=== PATIENT | male | born 1930 | race Caucasian/White ===

== ENCOUNTER 2017-09-06 06:07 | Inpatient (IN) | payer OTHER, MEDICARE ==
[~2017-09-06] VITALS: Ht 170.2 cm; Wt 90.2 kg
[~2017-09-06 06:07] MED LIST: ADULT LOW DOSE81 M1 PO; ATORVASTATIN CA80 MG PO; CARDIZEM CD,CA180 MG PO; CARDIZEM60 MG PO; CHROMIUM PICO200 MCG PO; CINNAMON PO; CO Q10 PO; COLACE100 MG PO; COQ-10100 MG PO; CRESTOR10 MG PO; CYANOCOBALAM1000 MCG PO; Calcium Carbonate,Ca PO; Catapres-TTS 1 TD; Chromium Picolinate PO; Cinnamon Bark PO; Cleocin PO; Colace PO; DIGITEK125 MC2 PO; ELIQUIS2.5 MG PO; Ecotrin PO; FISH OIL 1,0001 EA11 PO; Feosol PO; Fish Oil PO; GARLIC500 MG PO; GINGER ROOT PO; GINGER ROOT550 MG PO; GLUCOSAMINE CH1 EAC2 PO; GLUCOTROL10 MG PO; Garlic PO; Glucotrol PO; HYTRIN2 MG PO; LEVOFLOXACIN750 MG PO; LOPRESSOR100 M1 PO; MOVE FREE1 CAPSULE PO; Micro-K,K-Tab,K-Dur, PO; PLAVIX75 MG PO; PREDNISONE20 MG PO; PRILOSEC20 MG PO; PriLOSEC PO; SPIRIVA RESPIMAT4 GM IH; Selenium PO; Senokot S,Pericolace PO; TOPROL XL25 MG PO; TRADJENTA5 MG PO; TYLENOL EXTRA500 MG PO; Toprol XL PO; Tylenol Regular Stre PO; VITAMIN B-122000 MCG PO; VITAMIN D2000 UNIT PO; VITAMIN E100 UNIT PO; Vicodin,Norco 5/325 PO; Vitamin B-12 PO; Vitamin D PO; ZINC GLUCONATE50 MG PO; ZYRTEC10 M3 PO; Zinc Gluconate PO; ZyrTEC PO
[2017-09-06 07:46] LABS: BASOPHIL (%) 0.4 % (0-1); BASOPHIL COUNT 0.1 K/uL (0-0.1); EOSINOPHIL (%) 0.8 % (0-5); EOSINOPHIL COUNT 0.1 K/uL (0-0.3); HEMATOCRIT 37.3 % (38.0-50.0); HEMOGLOBIN 12.2 G/DL (12.5-16.6); IMMATURE GRANULOCYTE (%) 0.7 % (0.0-0.7); LYMPHOCYTE (%) 6.3 % (15-42); LYMPHOCYTE COUNT 1.1 K/uL (1.0-2.8); MCHC 32.7 G/DL (30.0-36.0); MCV 91.9 FL (86-99); MONOCYTE (%) 5.1 % (3-12); MONOCYTE COUNT 0.9 K/uL (0-0.8); NEUTROPHIL (%) 86.7 % (45-76); NEUTROPHIL COUNT 15.7 K/uL (1.8-6.4); PLATELET COUNT 241 K/uL (156-360); RBC DIS.WIDTH-CV 15.6 % (11.8-14.6); RBC DIS.WIDTH-SD 52.1 % (39-53); RED BLOOD COUNT 4.06 M/uL (4.00-5.50); WHITE BLOOD COUNT 18.1 K/uL (4.1-10.2)
[2017-09-06 07:54] LABS: INTER. NORMALIZED RATIO 1.4
[2017-09-06 07:56] LABS: CARBON DIOXIDE (BICARBONATE) 31.9 MEQ/L (20-31)
[2017-09-06 08:31] LABS: TROP-I INTERPRETATION NEGATIVE; TROPONIN-I 0.01 ng/mL (0.0-0.30)
[2017-09-06 08:33] LABS: ALBUMIN 3.6 G/DL (3.2-4.8); ALKALINE PHOSPHATASE 59 IU/L (3-129); ALT (GPT) 9 IU/L (3-49); AST (GOT) 12 IU/L (2-34); CHLORIDE 102 MEQ/L (99-109); CREATININE 1.6 MG/DL (0.6-1.3); GFR ESTIMATE (CALCULATED) 44 mL/min/ (58.99-99999); GLUCOSE 219 mg/dL (70-99); POTASSIUM 4.7 MEQ/L (3.7-5.4); SODIUM 137 MEQ/L (136-147); TOTAL PROTEIN 6.2 G/DL (6.4-8.3); UREA NITROGEN (BUN) 24 mg/dL (9-23)
[2017-09-06] MEDS ORDERED: METOPROLOL TART50 MG PO (12:08)
[2017-09-06] MEDS ORDERED: FUROSEMIDE40 MG PO (12:08)
[2017-09-06] MEDS ORDERED: RANEXA500 MG PO (12:08)
[2017-09-06] MEDS ORDERED: CROMOLYN SODIUM26 ML BOTH NARES (12:10)
[2017-09-06 14:00] VITALS: BP 194/86
[2017-09-06 14:04] LABS: TROP-I INTERPRETATION NEGATIVE; TROPONIN-I 0.13 ng/mL (0.0-0.30)
[2017-09-06 16:24] VITALS: BP 154/68
[2017-09-06 19:25] VITALS: BP 127/47
[2017-09-06 19:33] LABS: TROP-I INTERPRETATION NEGATIVE; TROPONIN-I 0.13 ng/mL (0.0-0.30)
[2017-09-07] VITALS (7 sets, daily range): BP systolic 111–145; BP diastolic 60–77
[2017-09-07 05:28] LABS: HEMATOCRIT 35.8 % (38.0-50.0); HEMOGLOBIN 11.6 G/DL (12.5-16.6); MCH 29.4 PG (29.0-34.0); MCHC 32.4 G/DL (30.0-36.0); MCV 90.6 FL (86-99); PLATELET COUNT 259 K/uL (156-360); RBC DIS.WIDTH-CV 15.6 % (11.8-14.6); RBC DIS.WIDTH-SD 51.1 % (39-53); RED BLOOD COUNT 3.95 M/uL (4.00-5.50); WHITE BLOOD COUNT 19.3 K/uL (4.1-10.2)
[2017-09-07 05:50] LABS: CHLORIDE 99 MEQ/L (99-109); CREATININE 1.6 MG/DL (0.6-1.3); GFR ESTIMATE (CALCULATED) 44 mL/min/ (58.99-99999); GLUCOSE 267 mg/dL (70-99); POTASSIUM 4.4 MEQ/L (3.7-5.4); SODIUM 137 MEQ/L (136-147); UREA NITROGEN (BUN) 32 mg/dL (9-23)
[2017-09-07 21:48] LABS: APPEARANCE CLEAR ((CLEAR)); BILIRUBIN NEGATIVE; BLOOD NEGATIVE; COLOR YELLOW ((YELLOW)); GLUCOSE (STRIP) >=500; KETONES NEGATIVE; LEUKOCYTES NEGATIVE; NITRITE NEGATIVE; PROTEIN (STRIP) 30; SPECIFIC GRAVITY 1.018 (1.000-1.030); UCUL ADDED? NO; UROBILINOGEN 0.2 MG/DL (0.2-1.0)
[2017-09-08 04:04] VITALS: BP 155/94
[2017-09-08 05:32] LABS: BASOPHIL (%) 0.1 % (0-1); EOSINOPHIL (%) 0 % (0-5); HEMATOCRIT 36.3 % (38.0-50.0); HEMOGLOBIN 11.9 G/DL (12.5-16.6); IMMATURE GRANULOCYTE (%) 0.9 % (0.0-0.7); LYMPHOCYTE (%) 4.2 % (15-42); MCH 29.5 PG (29.0-34.0); MCHC 32.8 G/DL (30.0-36.0); MCV 90.1 FL (86-99); MONOCYTE COUNT 1.2 K/uL (0-0.8); NEUTROPHIL (%) 89.8 % (45-76); NRBC (%) 0.1 /100 WBC (0-0); RBC DIS.WIDTH-CV 15.9 % (11.8-14.6); RBC DIS.WIDTH-SD 51.5 % (39-53); RED BLOOD COUNT 4.03 M/uL (4.00-5.50); WHITE BLOOD COUNT 23.4 K/uL (4.1-10.2)
[2017-09-08 05:53] LABS: ALBUMIN 3.7 G/DL (3.2-4.8); ALKALINE PHOSPHATASE 51 IU/L (3-129); ALT (GPT) 10 IU/L (3-49); CHLORIDE 99 MEQ/L (99-109); CREATININE 1.5 MG/DL (0.6-1.3); GFR ESTIMATE (CALCULATED) 47 mL/min/ (58.99-99999); GLUCOSE 188 mg/dL (70-99); POTASSIUM 4.7 MEQ/L (3.7-5.4); SODIUM 138 MEQ/L (136-147); TOTAL PROTEIN 6.3 G/DL (6.4-8.3); UREA NITROGEN (BUN) 37 mg/dL (9-23)
[2017-09-08 05:59] LABS: AST (GOT) 28 IU/L (2-34); TOTAL BILIRUBIN 0.7 MG/DL (0.0-1.0)
[2017-09-08 06:29] LABS: HEMATOLOGY COMMENT 1 SN; PLAT.SUFFICIENCY ADEQUATE; PLATELET COUNT 283 K/uL (156-360)
[2017-09-08 07:18] VITALS: BP 133/74
[2017-09-08 10:01] LABS: HEMOGLOBIN A1c (GLYCOHEMOGLOB) 6.6 % (Below 5.7)
[2017-09-08] MEDS ORDERED: LOPRESSOR50 MG PO (11:32)
[2017-09-08] MEDS ORDERED: ALBUTEROL2.5 MG/0.5 AEROSOL (11:32)
[2017-09-08] MEDS ORDERED: PREDNISONE10 MG PO (11:32)
[2017-09-08] MEDS ORDERED: DULERA 100 MCG/13 GM IH (11:32)
[2017-09-08] MEDS ORDERED: SPIRIVA RESPIMAT4 GM IH (11:32)
[2017-09-08] MEDS ORDERED: PREDNISONE20 MG PO (11:32)
[2017-09-08] MEDS ORDERED: NEBULIZER MC (11:33)
[2017-09-08 12:47] VITALS: BP 151/62
== END 2017-09-08 14:14 | disposition home or self-care (01) | DRG 190 ==
LOC: EME 06:07 → EDOF 11:43 → 4EAST 11:43 → ENRESERV 11:46 → 4EAST 13:28 → ENPENDDIS 09-08 → 4EAST 09-08 14:14
PROVIDERS: Emergency Medicine; Hospitalist; Internal Medicine; Nurse Practitioner Adult Health
PROC: 5A09357 Assistance with Respiratory Ventilation, Less than 24 Consecutive Hours, Continuous Positive Airway Pressure (ICD-10-PCS; principal; 2017-09-06)
DX: J44.1 Chronic obstructive pulmonary disease with (acute) exacerbation (principal); J96.01 Acute respiratory failure with hypoxia; I13.0 Hypertensive heart and chronic kidney disease with heart failure and stage 1 through stage 4 chronic kidney disease, or unspecified chronic kidney disease; I50.9 Heart failure, unspecified; E11.22 Type 2 diabetes mellitus with diabetic chronic kidney disease; N18.3 Chronic kidney disease, stage 3 (moderate); J20.9 Acute bronchitis, unspecified; J44.0 Chronic obstructive pulmonary disease with (acute) lower respiratory infection; I35.0 Nonrheumatic aortic (valve) stenosis; I48.2 Chronic atrial fibrillation; I48.92 Unspecified atrial flutter; E78.5 Hyperlipidemia, unspecified; I25.10 Atherosclerotic heart disease of native coronary artery without angina pectoris; E66.01 Morbid (severe) obesity due to excess calories; Z68.31 Body mass index [BMI] 31.0-31.9, adult; G47.33 Obstructive sleep apnea (adult) (pediatric); I25.2 Old myocardial infarction; I45.10 Unspecified right bundle-branch block; K21.9 Gastro-esophageal reflux disease without esophagitis; N40.0 Benign prostatic hyperplasia without lower urinary tract symptoms; Z86.73 Personal history of transient ischemic attack (TIA), and cerebral infarction without residual deficits; Z87.891 Personal history of nicotine dependence; Z86.74 Personal history of sudden cardiac arrest; Z91.11 Patient's noncompliance with dietary regimen; Z95.1 Presence of aortocoronary bypass graft; Z79.01 Long term (current) use of anticoagulants; Z79.84 Long term (current) use of oral hypoglycemic drugs; Z88.0 Allergy status to penicillin; Z88.2 Allergy status to sulfonamides; Z91.041 Radiographic dye allergy status
CPT/HCPCS: 71045; 71250; 80048; 80053; 80162; 81003; 82803; 82948; 83036; 83880; 84484; 85025; 85027; 85610; 85730; 93005; 93306; 94002; 94640; 94640 76; 94760; 94799; 99202; 99281; 99284; J1940; J2930; J7512